=== PATIENT | male | born 1975 | race Native Hawaiian/Other Pacific Islander ===

== ENCOUNTER 2018-10-07 15:01 | Emergency (ER) | payer OTHER ==
[~2018-10-07] VITALS: Ht 177.8 cm; Wt 86.2 kg
[2018-10-07 15:40] VITALS: BP 126/76; TEMP 98.1
== END 2018-10-07 15:40 | disposition home or self-care (01) ==
LOC: ED 15:01
DX: H66.92 Otitis media, unspecified, left ear (principal); H60.92 Unspecified otitis externa, left ear; F17.210 Nicotine dependence, cigarettes, uncomplicated
CPT/HCPCS: 99283

== ENCOUNTER 2018-10-17 14:48 | Emergency (ER) | payer OTHER ==
[~2018-10-17] VITALS: Ht 177.8 cm; Wt 86.2 kg
[2018-10-17 15:45] VITALS: BP 131/84; TEMP 97.7
== END 2018-10-17 15:45 | disposition home or self-care (01) ==
LOC: ED 14:48
DX: H65.92 Unspecified nonsuppurative otitis media, left ear (principal); H92.03 Otalgia, bilateral; F17.210 Nicotine dependence, cigarettes, uncomplicated
CPT/HCPCS: 96372; 99283; J0696